=== PATIENT | male | born 1995 | race African-American/Black ===

== ENCOUNTER → 2018-01-16 | Outpatient (REF) | payer BC ==
[2018-01-16 19:34] LABS: CHLAMYDIA DNA AMPLIFICATION NEGATIVE (NEGATIVE); GC DNA AMPLIFICATION NEGATIVE (NEGATIVE)
== END ==
LOC: M SFHCLERA 13:46
DX: R30.0 Dysuria (principal)

== ENCOUNTER 2018-12-13 16:13 | Emergency (ER) | payer BC ==
[~2018-12-13] VITALS: Ht 182.9 cm; Wt 72.8 kg
[2018-12-13] MEDS ORDERED: IBUPROFEN 600 MG TAB PO ONE (18:00)
--- NOTE | 2018-12-13 18:26 | REPVR ---
PROCEDURE INFORMATION: Exam: CT Head without contrast Exam date and time: 12/13/2018 5:54 PM Clinical history: 23 years old, male; Pain; Dizziness; Headache; Additional info: Dizziness, chronic headache TECHNIQUE: Imaging protocol: Computed tomography of the head without contrast. Radiation optimization: All CT scans at this facility use at least one of these dose optimization techniques: automated exposure control; mA and/or kV adjustment per patient size (includes targeted exams where dose is matched to clinical indication); or iterative reconstruction. COMPARISON: No relevant prior studies available. FINDINGS: Brain: Normal. No hemorrhage. Unremarkable white matter. No mass effect. Ventricles: Normal. No ventriculomegaly. Bones/joints: Unremarkable. No acute fracture. Sinuses: Visualized sinuses are unremarkable. No fluid levels. Mastoid air cells: Visualized mastoid air cells are well aerated. Soft tissues: Unremarkable. IMPRESSION: No acute intracranial abnormality. Electronically signed by: Umer Lowe On 12/13/2018 18:25:48 PM
[2018-12-13 18:39] LABS: HEMATOCRIT 49.5 % (42.0-52.0); HEMOGLOBIN 16.6 g/dl (13.5-17.5); MEAN CORPUSCULAR HEMOGLOBIN 29.9 pg (27.0-33.0); MEAN CORPUSCULAR HGB CONC 33.5 g/dl (32.0-36.5); PLATELET COUNT, AUTOMATED 256 10^3/uL (150-450); RED BLOOD COUNT 5.56 10^6/uL (4.30-6.10)
[2018-12-13 19:08] LABS: ERYTHROCYTE SEDIMENTATION RATE 2 mm/hr (0-15)
[2018-12-13 19:20] VITALS: BP 139/78
--- NOTE | 2018-12-15 08:02 | ECGEPIP ---
[facility] - ED Test Date: 2018-12-13 Pat Name: KATI HENRIQUEZ Department: Room: - Gender: Male Hydrology Technician: ALDAIR : 1995 Requested By: MADDY PRUETT PA-C Order Number: [id number] Reading MD: Janiya Greene Measurements Intervals [place] Rate: 64 P: 66 WI: 150 QRS: 91 QRSD: 93 T: 74 QT: 407 QTc: 421 Interpretive Statements SINUS RHYTHM BORDERLINE RIGHT AXIS DEVIATION ST ELEVATION, PROBABLY EARLY REPOLARIZATION No prior Electronically Signed on 12-15-2018 8:02:04 EDT by Janiya Greene
== END 2018-12-13 19:37 | disposition home or self-care (01) ==
LOC: M ED 16:13
DX: R51 Headache (principal); R42 Dizziness and giddiness; F32.9 Major depressive disorder, single episode, unspecified; F41.9 Anxiety disorder, unspecified; Z87.81 Personal history of (healed) traumatic fracture; F17.290 Nicotine dependence, other tobacco product, uncomplicated

== ENCOUNTER 2019-04-05 19:53 | Emergency (ER) | payer BC ==
[~2019-04-05] VITALS: Ht 182.9 cm; Wt 73.0 kg
[2019-04-05 19:53] VITALS: BP 134/82
[2019-04-05 21:44] LABS: THYROID STIMULATING HORMONE 1.54 uIU/ML (0.358-3.740)
[2019-04-07 10:35] LABS: PROLACTIN 5.3 NG/ML (2.1-17.7)
[2019-04-08 14:07] LABS: TESTOSTERONE FREE (DIRECT) 15.5 pg/mL (9.3-26.5)
== END 2019-04-05 21:01 | disposition home or self-care (01) ==
LOC: M ED 19:53
DX: N64.52 Nipple discharge (principal); F17.200 Nicotine dependence, unspecified, uncomplicated